=== PATIENT | male | born 1965 | race African-American/Black ===

== ENCOUNTER 2017-03-04 10:20 | Emergency (ER) | payer SELFPAY ==
[2017-03-04 10:58] LABS: Base Excess 3.4 mEq/L (-2 - +2)
[2017-03-04] MEDS ORDERED: Insulin Regular 300 UNITS/3 ML VIAL ONE (11:01)
[2017-03-04 11:03] LABS: ALT (SGPT) 14 U/L (8-55); AST (SGOT) 14 U/L (5-34); Albumin 4.3 g/dL (3.5-5.0); Alkaline Phosphatase 110 U/L (40-150); Anion Gap 22 mmol/L (10-20); BUN (Urea Nitrogen) 15 mg/dL (8.9-20.6); Bilirubin, Total 1.3 mg/dL (0.2-1.2); Calc. Creatinine Clearance 0 mL/min (70-130); Calcium 10.1 mg/dL (7.8-10.44); Carbon Dioxide 24 mmol/L (22-29); Chloride 87 mmol/L (98-107); Estimated GFR-MDRD 53; Globulin 4.2 g/dL (2.4-3.5); Lipase 79 U/L (8-78); Potassium 4.3 mmol/L (3.5-5.1); Protein, Total 8.5 g/dL (6.0-8.3); Sodium 129 mmol/L (136-145)
[2017-03-04 11:04] LABS: Eosinophils 2 % (0-10); Hemoglobin 15.2 g/dL (14.0-18.0); Lymphocytes 19 % (21-51); MDiff Complete? YES; Mean Corpuscular HGB CONC 33.8 g/dL (32.0-36.0); Mean Corpuscular Hemoglobin 27.9 pg (27.0-31.0); Mean Corpuscular Volume 82.6 fl (80.0-94.0); Mean Platelet Volume 8.5 fL (7.4-10.4); Monocytes 2 % (0-10); Neutrophil 77 % (42-75); Platelet Count 254 thou/uL (130-400); RBC Distribution Width 14.6 % (11.5-14.5); Red Blood Cell (RBC) Count 5.45 mill/uL (4.70-6.10)
[2017-03-04 11:07] LABS: Glucose 751 mg/dL (70-105)
--- NOTE | 2017-03-04 11:17 | RAD ---
FRONTAL VIEW CHEST: COMPARISON: No prior comparison. HISTORY: Cough. FINDINGS: The lungs are hyperinflated without consolidation or effusion. No discrete pneumothorax. Cardiac s ilhouette is normal in size. IMPRESSION: No focal consolidation. POS: [facility]
== END 2017-03-04 11:46 | disposition home or self-care (01) ==
LOC: BURERS 10:20
DX: N47.6 Balanoposthitis (principal); E10.65 Type 1 diabetes mellitus with hyperglycemia; A63.0 Anogenital (venereal) warts; Z79.84 Long term (current) use of oral hypoglycemic drugs; Z79.899 Other long term (current) drug therapy
CPT/HCPCS: 36415; 36416; 71010; 80053; 82805; 83605; 83690; 85025; 87480; 87510; 87660; 96361; 96374; J1815

== ENCOUNTER 2020-01-11 18:30 | Emergency (ER) | payer SELFPAY ==
[2020-01-11] MEDS ORDERED: Ondansetron ODT 4 MG TAB ONE (19:10)
[2020-01-11 19:23] LABS: Hemoglobin 9.8 g/dL (14.0-18.0); Mean Corpuscular Hemoglobin 24.9 pg (27.0-31.0); Mean Corpuscular Volume 80.3 fL (78.0-98.0); Mean Platelet Volume 8.4 fL (7.4-10.4); Platelet Count 355 thou/uL (130-400); RBC Distribution Width 14.3 % (11.5-14.5); Red Blood Cell (RBC) Count 3.92 mill/uL (4.70-6.10); White Blood Cell (WBC) Count 6.9 thou/uL (4.8-10.8)
[2020-01-11 19:38] LABS: ALT (SGPT) 61 U/L (8-55); AST (SGOT) 25 U/L (5-34); Albumin 3.4 g/dL (3.5-5.0); Alkaline Phosphatase 194 U/L (40-110); Anion Gap 15 mmol/L (10-20); BUN (Urea Nitrogen) 13 mg/dL (8.4-25.7); Bilirubin, Total 0.4 mg/dL (0.2-1.2); Calc. Creatinine Clearance 0 mL/min (70-130); Carbon Dioxide 25 mmol/L (22-29); Chloride 102 mmol/L (98-107); Estimated GFR-MDRD 51; Globulin 3.7 g/dL (2.4-3.5); Glucose 332 mg/dL (70-105); Lipase 874 U/L (8-78); Potassium 4.2 mmol/L (3.5-5.1); Protein, Total 7.1 g/dL (6.0-8.3); Sodium 138 mmol/L (136-145)
[2020-01-11 19:39] LABS: #Basophils 0.1 thou/uL (0.0-0.2); #Eosinphils 0.3 thou/uL (0.0-0.7); #Lymphocytes 1.7 thou/uL (1.20-3.40); #Monocytes 0.6 thou/uL (0.11-0.59); #Neutrophils 4.3 thou/uL (1.40-6.50); %Basophils 0.9 % (0.0-1.0); %Eosinophils 4.6 % (0.0-10.0); %Lymphocytes 23.9 % (21.0-51.0); %Monocytes 8.1 % (0.0-10.0); %Neutrophils 62.6 % (42.0-75.0); Hypochromia SLIGHT = 6-15 cells (100X) (0-5/hpf); MDiff Complete? YES; Target Cells SLIGHT = 2-5 cells (100X) (0-1/hpf)
--- NOTE | 2020-01-11 20:49 | CT ---
CT ABDOMEN AND PELVIS WITHOUT CONTRAST: 01/11/[address] was done given a slightly high creatinine. Axial slices were acquired followed by co adelaida and sagittal reconstructions. Comparison was made with the prior CT dated 06/09/19 from [facility]. The main finding on this study is enlargement of the pancreatic head and neck with surrounding strand ing typical of acute pancreatitis. I do not see any pseudocyst or abscess. There is a punctate 3 mm c alcification around the junction of the pancreatic head and neck. While the possibility of a proximal pancreatic duct stone is raised, I would note that this calcification was also present on the 06/09/19 scan in the same location at which time the patient did not have pancreatitis. The patient's gallbla dder today; however, is much larger. No stones were seen within it but ultrasound would be more sensi tive to such. The lung bases are clear. The liver seems slightly generous in size but contains no space occupying d isease. There is a large calcification near the dome of the liver, not a new finding. The spleen, adr enal glands, and kidneys were unremarkable within the limitations of a noncontrast study. The aorta s hows no dilation. The bowel is nondistended with no sign of obstruction. No free air or free fluid was seen. CT of the pelvis showed no pelvic masses, inflammatory changes, or free fluid. 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 IMPRESSION: 1. Acute pancreatitis. 2. Distention of the gallbladder without obvious stones. An ultrasound would still be worthwhile . 3. Punctate calcification near the junction of the pancreatic head and neck. Present and unchang ed when compared with the 06/09/19 study. While it still could be a proximal pancreatic duct stone, giv en no change in size or location over the interval, this seems less likely. Preliminary report discussed with Dr. Messer at 2017 on 01/11/20. POS: HOME
== END 2020-01-11 21:35 | disposition short-term general hospital (02) ==
LOC: BURERS 18:30
DX: K85.90 Acute pancreatitis without necrosis or infection, unspecified (principal); E11.9 Type 2 diabetes mellitus without complications; E78.5 Hyperlipidemia, unspecified; I10 Essential (primary) hypertension; Z79.4 Long term (current) use of insulin
CPT/HCPCS: 36415; 74176; 80053; 82274; 83605; 83690; 85025; 96360; Q0162